=== PATIENT | female | born 1985 | race Caucasian/White ===

== ENCOUNTER 2021-01-19 20:29 | Emergency (ER) | payer OTHER ==
[2021-01-19] MEDS ORDERED: Amoxicillin/Clavulanate K 875-125 MG Tab PO ONE (20:59)
[2021-01-19] MEDS ORDERED: Diphtheria,Pertussis(Acell),Tetanus Vaccine 0.5 ML Syringe IM ONE (20:59)
[2021-01-19] MEDS ORDERED: Lidocaine 1% 10 ML MDV INJECT ONE (20:59)
--- NOTE | 2021-01-19 21:01 | EDM.PDOC ---
ED HPI GENERAL MEDICAL PROBLEM - General Chief Complaint: Bite:Animal, Insect Stated Complaint: DOG BITE TO HAND Time Seen by Provider: 01/19/21 20:44 Source of Information: Reports: Patient, RN Notes Reviewed History Limitations: Reports: No Limitations - History of Present Illness INITIAL COMMENTS - FREE TEXT/NARRATIVE: Patient is a 35-year-old female presenting to the emergency department for evaluation of a dog bite on her right hand. She states that she was playing with her bulldog that she fosters when he bit her finger. The dog is up-to-date on its vaccinations. She states that she is due for a tetanus vaccination. - Related Data Allergies Allergy/AdvReac Type Severity Reaction Status Date / Time No Known Allergies Allergy Verified 01/19/21 20:42 Home Meds: Home Meds Amoxicillin/Potassium Clav [Augmentin 875-125 Tablet] 1 each PO BID 7 Days #13 tablet 01/19/21 [Rx] Lacosamide [Vimpat] 100 mg PO BID 01/19/21 [History] Sertraline [Zoloft] 100 mg PO DAILY 01/19/21 [History] Past Medical History HEENT History: Reports: Impaired Vision Psychiatric History: Reports: Anxiety - Past Surgical History HEENT Surgical History: Reports: LASIK Other HEENT Surgeries/Procedures: wisdom teeth removed Other Musculoskeletal Surgeries/Procedures:: right broken bone Social & Family History - Tobacco Use Tobacco Use Status *Q: Never Tobacco User Second Hand Smoke Exposure: No - Caffeine Use Caffeine Use: Reports: None - Alcohol Use Days Per Week of Alcohol Use: 5 Number of Drinks Per Day: 3 Total Drinks Per Week: 15 - Recreational Drug Use Recreational Drug Use: No ED ROS GENERAL - Review of Systems Review Of Systems: Comprehensive ROS is negative, except as noted in HPI. ED EXAM, ANIMAL BITE - Physical Exam Exam: See Below Exam Limited By: No Limitations General Appearance: Alert, WD/WN, No Apparent Distress Respiratory/Chest: No Respiratory Distress, Lungs Clear, Normal Breath Sounds, No Accessory Muscle Use, Chest Non-Tender Cardiovascular: Normal Peripheral Pulses, Regular Rate, Rhythm, No Edema, No Gallop, No JVD, No Murmur, No Rub Extremities: Other (1.5 cm laceration to the ventral aspect of the proximal phalynx of the left 4th finger. Scattered superficial abrasions to the finger. ) Neurological: Alert, Oriented, CN II-XII Intact, Normal Cognition, Normal Gait, Normal Reflexes, No Motor/Sensory Deficits Psychiatric: Normal Affect, Normal Mood Skin Exam: Warm/Dry, DRY, I, Normal Color, NR ED ANIMAL BITE PROCEDURES - Laceration/Wound Repair Left Ventral Digit - 4th (Ring) Lac/Wound Length In cm: 1.5 Appearance: Subcutaneous Anesthetic Type: Local Local Anesthesia - Lidocaine (Xylocaine): 1% Plain Local Anesthetic Volume: 1cc Skin Prep: Chlorhexidine (Hibiciens), Providone-Iodine (Betadine), Saline, Steri le Drape Exploration/Debridement/Repair: Wound Explored, No Foreign Material Found Closed With: Sutures Suture Size: 4-0 # of Sutures: 3 (Loose) Suture Type: Nylon Sterile Dressing Applied: Nurse Tetanus Status Addressed: Yes Complications: No Course - Vital Signs Last Recorded V/S: Last Vital Signs Temp 97.2 F 01/19/21 20:37 Pulse 101 H 01/19/21 20:37 Resp 12 01/19/21 20:37 BP 150/103 H 01/19/21 20:37 Pulse Ox 95 01/19/21 20:37 - Orders/Labs/Meds Meds: Medications Discontinued Medications Generic Name Dose Route Start Last Admin Trade Name Freq PRN Reason Stop Dose Admin Amoxicillin/Clavulanate Potassium 1 tab 01/19/21 20:59 01/19/21 21:13 Amoxicillin/Clavulanate K 875-125 Mg Tab PO 01/19/21 21:00 1 tab ONETIME ONE Administration Diphtheria/Tetanus/Acell Pertussis 0.5 ml 01/19/21 20:59 01/19/21 21:13 Diphtheria,Pertussis(Acell),Tetanus Vaccine 0.5 Ml Syringe IM 01/19/21 21:00 0.5 ml .ONCE ONE Administration Lidocaine HCl 10 ml 01/19/21 20:59 01/19/21 21:13 Lidocaine 1% 10 Ml Mdv INJECT 01/19/21 21:00 10 ml ONETIME ONE Administration - Re-Assessments/Exams Free Text/Narrative Re-Assessment/Exam: Patient is a 35-year-old female presenting to the emergency department for evaluation after having her foster dog bite her left fourth finger. She states that he is up-to-date on his vaccinations, however she does need a tetanus vaccination. On exam, she has a number of superficial bite rodriguez on the finger as well as a single 1.5 cm deep laceration to the volar aspect of the proximal phalanx. This will require sutures for closure. See procedure notes for closure. She will be started on Augmentin for infection prophylaxis and receive her Boostrix vaccination today. Discharge instructions as documented. Departure - Departure Time of Disposition: 21:48 Disposition: Home, Self-Care 01 Condition: Good Clinical Impression: Dog bite Qualifiers: Encounter type: initial encounter Qualified Code(s): W54.0XXA - Bitten by dog, initial encounter - Discharge Information *PRESCRIPTION DRUG MONITORING PROGRAM REVIEWED*: No *COPY OF PRESCRIPTION DRUG MONITORING REPORT IN PATIENT RAMIRO: No Prescriptions: Amoxicillin/Potassium Clav [Augmentin 875-125 Tablet] 1 each PO BID 7 Days #13 tablet Instructions: Animal Bite, Adult, [id number] Referrals: Antonio Self Jr, MD [Primary Care Provider] - Forms: ED Department Discharge Additional Instructions: You were seen in the emergency department today for a laceration to your left ring finger after being bit by a dog as well as other superficial bite wounds. The wounds were cleansed and closed with 3 sutures. These should stay intact for 7-10 days. After that time they may be removed in the clinic by a nurse. Keep the wound clean and dry. Wash with normal soap and water twice daily. Do not submerge the wound in water. Your tetanus vaccination was updated today so this is current for 10 years. You have been started on Augmentin for infection prevention. Take this medication as prescribed. Your first dose was given in ER this evening. Watch for signs of infection including increased redness, swelling, or purulent drainage. If these should occur, you should be seen either in the clinic or in the emergency department as antibiotic treatment may be needed. Return to the ER as needed. Sepsis Event Note (ED) - Evaluation Sepsis Screening Result: No Definite Risk
== END 2021-01-19 21:54 | disposition home or self-care (01) ==
LOC: JD.ED 20:29
DX: S61.255A Open bite of left ring finger without damage to nail, initial encounter (principal); Z79.899 Other long term (current) drug therapy; Z23 Encounter for immunization; W54.0XXA Bitten by dog, initial encounter
CPT/HCPCS: 12001; 90471; 90715; 99283; A9270

== ENCOUNTER 2021-01-21 11:33 | Emergency (ER) | payer OTHER ==
[2021-01-21] MEDS ORDERED: Piperacillin/Tazobactam 4.5 GM in Sodium Chloride 0.9% 100 ML IV ONE (11:41)
--- NOTE | 2021-01-21 12:03 | EDM.PDOC ---
ED HPI GENERAL MEDICAL PROBLEM - General Chief Complaint: Bite:Animal, Insect Stated Complaint: DOG BIT TO LEFT HAND/SWOLLEN Time Seen by Provider: 01/21/21 11:36 Source of Information: Reports: Patient, Provider, RN Notes Reviewed History Limitations: Reports: No Limitations - History of Present Illness INITIAL COMMENTS - FREE TEXT/NARRATIVE: Patient is a 35-year-old female presenting to the emergency department from [facility] for evaluation with regards to pain and swelling to her left fourth finger. She was seen in this emergency department 2 days ago after sustaining a dog bite to that finger. Wound was cleansed and closed with 3 sutures. She was started on Augmentin for infection prophylaxis. She states that the wound has been getting progressively more painful and swollen. She denies any fever or chills. She did have one episode of vomiting yesterday, however states that she took her Augmentin without food prior to that. Treatments [employer]: Reports: NSAIDS Left Hand Pain Score (Numeric/FACES): 10 - Related Data Allergies Allergy/AdvReac Type Severity Reaction Status Date / Time No Known Allergies Allergy Verified 01/21/21 11:41 Home Meds: Home Meds Amoxicillin/Potassium Clav [Augmentin 875-125 Tablet] 1 each PO BID 7 Days #13 tablet 01/19/21 [Rx] Lacosamide [Vimpat] 100 mg PO BID 01/19/21 [History] Sertraline [Zoloft] 100 mg PO DAILY 01/19/21 [History] Past Medical History HEENT History: Reports: Impaired Vision Psychiatric History: Reports: Anxiety - Past Surgical History HEENT Surgical History: Reports: LASIK Other HEENT Surgeries/Procedures: wisdom teeth removed Other Musculoskeletal Surgeries/Procedures:: right broken bone Social & Family History - Tobacco Use Tobacco Use Status *Q: Never Tobacco User - Caffeine Use Caffeine Use: Reports: None ED ROS GENERAL - Review of Systems Review Of Systems: Comprehensive ROS is negative, except as noted in HPI. ED EXAM, ANIMAL BITE - Physical Exam Exam: See Below Exam Limited By: No Limitations General Appearance: Alert, WD/WN, No Apparent Distress Respiratory/Chest: No Respiratory Distress, Lungs Clear, Normal Breath Sounds, No Accessory Muscle Use, Chest Non-Tender Cardiovascular: Normal Peripheral Pulses, Regular Rate, Rhythm, No Edema, No Gallop, No JVD, No Murmur, No Rub Extremities: Other (Moderate edema to the left fourth finger. 1.5 cm sutured laceration to the volar aspect of the proximal phalanx. No drainage, however there does appear to be purulence below the surface. Redness and edema extends approximately chcf up the surface of the hand.) Neurological: Alert, Oriented, CN II-XII Intact, Normal Cognition, Normal Gait, Normal Reflexes, No Motor/Sensory Deficits Psychiatric: Normal Affect, Normal Mood Course - Vital Signs Last Recorded V/S: Last Vital Signs Temp 98.0 F 01/21/21 11:39 Pulse 84 01/21/21 11:39 Resp 18 01/21/21 11:39 BP 134/88 01/21/21 11:39 Pulse Ox 98 01/21/21 11:39 - Orders/Labs/Meds Labs: Laboratory Tests 01/21/21 01/21/21 01/21/21 Range/Units 11:42 11:42 11:53 WBC 7.43 (3.98-10.04) K/mm3 RBC 4.63 (3.98-5.22) M/mm3 Hgb 14.5 (11.2-15.7) gm/dl Hct 45.5 H (34.1-44.9) % MCV 98.3 H (79.4-94.8) fl MCH 31.3 (25.6-32.2) pg MCHC 31.9 L (32.2-35.5) g/dl RDW Std Deviation 54.3 H (36.4-46.3) fL Plt Count 148 L (182-369) K/mm3 MPV 9.8 (9.4-12.3) fl Neut % (Auto) 79.0 H (34.0-71.1) % Lymph % (Auto) 12.8 L (19.3-51.7) % Gage % (Auto) 6.9 (4.7-12.5) % Eos % (Auto) 0.9 (0.7-5.8) Baso % (Auto) 0.1 (0.1-1.2) % Neut # (Auto) 5.87 (1.56-6.13) K/mm3 Lymph # (Auto) 0.95 L (1.18-3.74) K/mm3 Gage # (Auto) 0.51 H (0.24-0.36) K/mm3 Eos # (Auto) 0.07 (0.04-0.36) K/mm3 Baso # (Auto) 0.01 (0.01-0.08) K/mm3 Sodium 142 (136-145) mEq/L Potassium 3.9 (3.5-5.1) mEq/L Chloride 103 (98-107) mEq/L Carbon Dioxide 30 (21-32) mEq/L Anion Gap 12.9 (5-15) BUN 7 (7-18) mg/dL Creatinine 0.7 (0.55-1.02) mg/dL Est Cr Clr Drug Dosing TNP Estimated GFR (MDRD) > 60 (>60) mL/min BUN/Creatinine Ratio 10.0 L (14-18) Glucose 108 H (74-106) mg/dL Calcium 9.1 (8.5-10.1) mg/dL Total Bilirubin 1.0 (0.2-1.0) mg/dL AST 63 H (15-37) U/L ALT 46 (14-59) U/L Alkaline Phosphatase 120 H (46-116) U/L C-Reactive Protein 10.9 H* (<1.0) mg/dL Total Protein 7.6 (6.4-8.2) g/dl Albumin 3.3 L (3.4-5.0) g/dl Globulin 4.3 gm/dL Albumin/Globulin Ratio 0.8 L (1-2) SARS-CoV-2 RNA (MELANIE) Negative (NEGATIVE) Meds: Medications Discontinued Medications Generic Name Dose Route Start Last Admin Trade Name Freq PRN Reason Stop Dose Admin Piperacillin Sod/Tazobactam 100 mls @ 200 mls/hr 01/21/21 11:41 01/21/21 11:50 Sod 4.5 gm/ Sodium Chloride IV 01/21/21 12:10 200 mls/hr ONETIME ONE Administration - Re-Assessments/Exams Free Text/Narrative Re-Assessment/Exam: Patient is a 35-year-old female presenting to the emergency department from the [facility] for evaluation with regards to pain and swelling to her left fourth finger after sustaining a dog bite on Friday. I did see her in the ER that evening. She had a 1.5 cm gaping wound to the proximal aspect of this finger. Wound was soaked in Betadine and irrigated well. It was gaping with adipose tissue protruding, therefore, closure was necessary. It was closed with three loose sutures. She was started on Augmentin for infection prophylaxis and given her tetanus vaccination. She states that the finger has been getting progressively more swollen and painful. She has been taking her Augmentin as prescribed. On exam, there is significant swelling to the finger as well as what appears to be purulence below the surface of the laceration. I ordered IV Zosyn to be given now as well as blood work including CBC, CMP, CRP, and Covid screen. Case was discussed with orthopedist, Dr. Law. Unfortunately he does not work with flexor tendons, therefore he recommended I call the hand specialist in [place]. Spoke with Dr. Travis, the hand specialist on-call at [facility]. He has accepted the patient for transfer with a direct admission. She should remain n.p.o. We will lower her to finish her dose of antibiotics and then proceed to [place] via private vehicle. We will fax the lab results and Covid results down to the facility once they are complete. Patient is in agreement with this plan. Departure - Departure Time of Disposition: 12:02 Disposition: DC/Tfer to Acute Hospital 02 Condition: Good Clinical Impression: Infected dog bite of finger Qualifiers: Encounter type: initial encounter Qualified Code(s): S61.259A - Open bite of unspecified finger without damage to nail, initial encounter - Discharge Information *PRESCRIPTION DRUG MONITORING PROGRAM REVIEWED*: No *COPY OF PRESCRIPTION DRUG MONITORING REPORT IN PATIENT RAMIRO: No Instructions: Animal Bite, Adult, [id number] Referrals: PCP,None [Primary Care Provider] - Forms: ED Department Discharge Additional Instructions: You were seen in the emergency department this today for evaluation of worsening pain and swelling to your left fourth finger after being bit by a dog on Friday. Exam does indicate that there is likely infection in this finger. While in the ER, you received a first dose of IV antibiotics. Arrangements have been made for you to be admitted to [facility] in [place] under the care of orthopedist, Dr. Travis. He will see you once you arrive to this facility. You should have nothing to eat or drink while enroute in anticipation of possibly needing to go to surgery today. Recommend that after leaving here you proceed directly to [place]. You may check in at the admitting desk in the ER. Sepsis Event Note (ED) - Evaluation Sepsis Screening Result: No Definite Risk - Focused Exam Vital Signs: Vital Signs Temp Pulse Resp BP Pulse Ox 01/21/21 11:39 98.0 F 84 18 134/88 98
== END 2021-01-21 12:25 ==
LOC: JD.ED 11:33
DX: S61.255A Open bite of left ring finger without damage to nail, initial encounter (principal); L08.9 Local infection of the skin and subcutaneous tissue, unspecified; Z79.899 Other long term (current) drug therapy; Z20.822 Contact with and (suspected) exposure to COVID-19; W54.0XXA Bitten by dog, initial encounter
CPT/HCPCS: 12001; 36415; 80053; 85025; 86140; 87635; 96365; 99283; J2543; 99284; U0002

== ENCOUNTER 2021-10-07 10:42 | Emergency (ER) | payer OTHER ==
[2021-10-07] MEDS ORDERED: Sodium Chloride 0.9% 1,000 ML IV ONE (12:27)
[2021-10-07] MEDS ORDERED: Ondansetron 4 MG/2 ML SDV IVPUSH ONE (12:27)
--- NOTE | 2021-10-07 12:27 | EDM.PDOC ---
ED HPI GENERAL MEDICAL PROBLEM - General Chief Complaint: Abdominal Pain Stated Complaint: VOMITING Time Seen by Provider: 10/07/21 11:04 Source of Information: Reports: Patient History Limitations: Reports: No Limitations - History of Present Illness INITIAL COMMENTS - FREE TEXT/NARRATIVE: 36-year-old female presents the emergency department today with complaints of vomiting that occurs every 8 days. She states that his has been an ongoing issue for the past 1 year. She notifies me that approximately every 8 days she vomits throughout the day. She woke at about midnight last evening has been vomiting throughout the night. Until this morning and has been unable to keep any food or fluids down. She states that the emesis is clear. She denies any black tarry stools. She denies any recent fever, chills, or diarrhea. She denies any abdominal pain associated with the vomiting. She states she does have issues with constipation. She states she did see a primary care provider regarding this issue and did have stool studies completed however has not followed up with her primary care provider for the results. She states she has never seen a missile facilities repairer. She has never had an EGD or colonoscopy. She admits that she has a very poor diet and does not consume much water or vegetables and eats a lot of processed foods. She also admits to drinking heavily. She states she has 3-5 drinks nightly and on the weekends gets severely intoxicated. She states she was told at her last primary care visit that her liver enzymes are elevated. - Related Data Allergies Allergy/AdvReac Type Severity Reaction Status Date / Time No Known Allergies Allergy Verified 10/07/21 11:01 Home Meds: Home Meds Lacosamide [Vimpat] 100 mg PO BID 01/19/21 [History] Sertraline [Zoloft] 100 mg PO DAILY 01/19/21 [History] Past Medical History HEENT History: Reports: Impaired Vision Psychiatric History: Reports: Anxiety - Infectious Disease History Infectious Disease History: Reports: Novel Coronavirus - Past Surgical History HEENT Surgical History: Reports: LASIK Other HEENT Surgeries/Procedures: wisdom teeth removed Other Musculoskeletal Surgeries/Procedures:: right broken bone Social & Family History - Tobacco Use Tobacco Use Status *Q: Never Tobacco User - Caffeine Use Caffeine Use: Reports: None ED ROS GENERAL - Review of Systems Review Of Systems: Comprehensive ROS is negative, except as noted in HPI. ED EXAM, GI/ABD - Physical Exam Exam: See Below General Appearance: Alert, WD/WN, No Apparent Distress Eyes: Bilateral: Normal Appearance Ears: Normal External Exam, Hearing Grossly Normal Nose: Normal Inspection Throat/Mouth: Normal Inspection, Normal Lips, Normal Voice, No Airway Compromise Head: Atraumatic Neck: Normal Inspection, Supple Respiratory/Chest: No Respiratory Distress, Lungs Clear, Normal Breath Sounds, No Accessory Muscle Use, Chest Non-Tender Cardiovascular: Normal Peripheral Pulses, Regular Rate, Rhythm, No Edema, No Murmur GI/Abdominal Exam: Normal Bowel Sounds, Soft, Non-Tender, No Distention (Female) Exam: Deferred Rectal (Female) Exam: Deferred Back Exam: Normal Inspection, Full Range of Motion Extremities: Normal Inspection, Normal Range of Motion, Non-Tender, No Pedal Edema, Normal Capillary Refill Neurological: Alert, Oriented, Normal Cognition Psychiatric: Normal Affect, Normal Mood Skin Exam: Warm, Dry, Intact, Normal Color, No Rash Lymphatic: No Adenopathy Course - Vital Signs Text/Narrative:: Stated above, patient presents with approximate 1 year history of vomiting that occurs approximately every days. States that this occurred last night starting at approximately midnight and happen throughout the night. Physical exam reveals a very unkept female. She does appear much older than her stated age. Exam is essentially unremarkable. Abdomen is soft and bowel tones are positive in all 4 quadrants. Heart rate is regular and lung sounds are clear. Will obtain lab studies to include a CBC, CMP, C-reactive protein and magnesium level. Also get a flat and upright of the abdomen. Obtain a urinalysis with micro and culture if indicated. We will also medicate the patient with a liter of normal saline as she is likely dehydrated and Zofran 4 mg IV. Last Recorded V/S: Last Vital Signs Temp 97.4 F 10/07/21 10:58 Pulse 99 10/07/21 10:58 Resp 18 10/07/21 10:58 BP 147/103 H 10/07/21 10:58 Pulse Ox 97 10/07/21 10:58 - Orders/Labs/Meds Orders: Active Orders 24 hr Category Date Time Status Abdomen 2V AP Flat Upright [CR] Stat Exams 10/07/21 11:06 Taken Labs: Laboratory Tests 01/02/22 01/02/22 01/02/22 Range/Units 12:14 12:14 14:15 WBC 5.00 (3.98-10.04) K/mm3 RBC 4.50 (3.98-5.22) M/mm3 Hgb 14.3 (11.2-15.7) gm/dl Hct 45.1 H (34.1-44.9) % MCV 100.2 H D (79.4-94.8) fl MCH 31.8 (25.6-32.2) pg MCHC 31.7 L (32.2-35.5) g/dl RDW Std Deviation 60.7 H (36.4-46.3) fL Plt Count 167 L (182-369) K/mm3 MPV 10.3 (9.4-12.3) fl Neut % (Auto) 79.0 H (34.0-71.1) % Lymph % (Auto) 13.0 L (19.3-51.7) % [place] % (Auto) 7.2 (4.7-12.5) % Eos % (Auto) 0.2 L (0.7-5.8) Baso % (Auto) 0.6 (0.1-1.2) % Neut # (Auto) 3.95 (1.56-6.13) K/mm3 Lymph # (Auto) 0.65 L (1.18-3.74) K/mm3 [place] # (Auto) 0.36 (0.24-0.36) K/mm3 Eos # (Auto) 0.01 L (0.04-0.36) K/mm3 Baso # (Auto) 0.03 (0.01-0.08) K/mm3 Sodium 141 (136-145) mEq/L Potassium 4.2 (3.5-5.1) mEq/L Chloride 102 (98-107) mEq/L Carbon Dioxide 31 (21-32) mEq/L Anion Gap 12.2 (5-15) BUN 6 L (7-18) mg/dL Creatinine 0.6 (0.55-1.02) mg/dL Est Cr Clr Drug Dosing 109.78 mL/min Estimated GFR (MDRD) > 60 (>60) mL/min BUN/Creatinine Ratio 10.0 L (14-18) Glucose 118 H (70-99) mg/dL Calcium 8.7 (8.5-10.1) mg/dL Magnesium 1.0 L (1.8-2.4) mg/dL Total Bilirubin 1.4 H (0.2-1.0) mg/dL AST 249 H (15-37) U/L ALT 108 H (14-59) U/L Alkaline Phosphatase 217 H (46-116) U/L C-Reactive Protein 0.4 (<1.0) mg/dL Total Protein 7.8 (6.4-8.2) g/dl Albumin 3.6 (3.4-5.0) g/dl Globulin 4.2 gm/dL Albumin/Globulin Ratio 0.9 L (1-2) Urine Color Yellow (Yellow) Urine Appearance Clear (Clear) Urine pH 7.0 (5.0-8.0) Ur Specific [place] 1.025 (1.005-1.030) Urine Protein 2+ H (Negative) Urine Glucose (UA) Negative (Negative) Urine Ketones Negative (Negative) Urine Occult Blood Negative (Negative) Urine Nitrite Negative (Negative) Urine Bilirubin Negative (Negative) Urine Urobilinogen 1.0 (0.2-1.0) Ur Leukocyte Esterase Negative (Negative) U Hyaline Cast (Auto) 5-10 H (0-5) /lpf Urine RBC 0-5 (0-5) /hpf Urine WBC Not seen (0-5) /hpf Ur Squamous Epith Cells 0-5 (0-5) /hpf Urine Bacteria Rare (FEW) /hpf Urine Mucus Few (FEW) /hpf Meds: Medications Discontinued Medications Generic Name Dose Route Start Last Admin Trade Name Lina PRN Reason Stop Dose Admin Sodium Chloride 1,000 mls @ 999 mls/hr 10/07/21 12:27 10/07/21 12:49 Normal Saline IV 10/07/21 13:27 999 mls/hr ONETIME ONE Administration Magnesium Sulfate 4 gm/ Premix 50 mls @ 12.5 mls/hr 10/07/21 13:29 10/07/21 13:51 IV 10/07/21 17:28 12.5 mls/hr ONETIME ONE Administration Magnesium Oxide 800 mg 10/07/21 13:30 10/07/21 13:51 Magnesium Oxide 400 Mg Tab PO 10/07/21 13:31 800 mg ONETIME ONE Administration Ondansetron HCl 4 mg 10/07/21 12:27 10/07/21 12:49 Ondansetron 4 Mg/2 Ml Sdv IVPUSH 10/07/21 12:28 4 mg ONETIME ONE Administration - Re-Assessments/Exams Free Text/Narrative Re-Assessment/Exam: 10/07/21 12:49 vRad radiologist impression flat and upright of the abdomen: No acute findings. 10/07/21 14:02 Hematology reveals a WBC of 5.0, hemoglobin 14.3, hematocrit 45.1, platelet count 167 Chemistry reveals a sodium of 141, potassium 4.2, anion gap 12.2, BUN 6, creatinine 0.6, GFR greater than 60, glucose 118, magnesium 1.0, total bilirubin 1.4, AST 249, ALT 118, alk phos 217, C-reactive protein 0.4 I ordered for the patient received 4 g of magnesium IV as well as magnesium oxide 800 mg p.o. x1 dose. I discussed at length the patient's lab results. Patient likely having bouts of nausea and vomiting due to her elevated liver enzymes and portal hypertension. Discussed the severity of her elevated liver enzymes as well as her hypomagnesemia results. Notify the patient that at this time it would be in her best interest to stop drinking alcohol. Patient states she does verbalize understanding. 10/07/21 18:15 And has completed her magnesium infusion. I will allow her to go home. Again discussed at length the need to stop drinking. Patient is very motivated to quit drinking. States she has reached out to a friend has been sober for a year. She also states she will look into going to alcoholics anonymous meetings. She has been instructed to return to the emergency department with any worsening symptoms or problems. Also instructed to follow-up with her primary care provider in about a week for reevaluation. Departure - Departure Time of Disposition: 18:16 Disposition: Home, Self-Care 01 Condition: Good Clinical Impression: Elevated liver enzymes, Hypomagnesemia, Alcohol abuse - Discharge Information Instructions: Alcohol Abuse and Dependence Information, Adult, Finding Treatment for Addiction Referrals: Antonio Self Jr, MD [Primary Care Provider] - Erika Gee NP [Nurse Practitioner] - Forms: ED Department Discharge Additional Instructions: You were seen in the emergency department today with complaints of that occurs approximately ever 8 days and decreased appetite. He did admit to significant use of alcohol daily and on the weekends. Lab studies were completed which showed your magnesium level was extremely low and liver enzymes were extremely elevated. As discussed, the cause of your vomiting and decreased appetite likely due to injury to your liver causing you to feel fullness and then subsequently vomiting. Magnesium level likely depleted due to excessive alcohol intake. Elevated blood pressure likely due to liver injury. Recommend you stop drinking alcohol immediately. Find a support group or a good support system to assist with your recovery. Eat a well-balanced diet with magnesium rich fluids and drink plenty of water. Recommend follow-up with your primary care provider in about 1 week for reevaluation. Should your condition worsen or change, do not hesitate returning the emergency department. Sepsis Event Note (ED) - Evaluation Sepsis Screening Result: No Definite Risk - Focused Exam Vital Signs: Vital Signs Temp Pulse Resp BP Pulse Ox 10/07/21 10:58 97.4 F 99 18 147/103 H 97 - My Orders Last 24 Hours: My Active Orders 10/07/21 11:06 Abdomen 2V AP Flat Upright [CR] Stat - Assessment/Plan Last 24 Hours: My Active Orders 10/07/21 11:06 Abdomen 2V AP Flat Upright [CR] Stat
[2021-10-07] MEDS ORDERED: Magnesium Sulfate/Water 4 GM in Premix Bag 1 BAG IV ONE (13:29)
[2021-10-07] MEDS ORDERED: Magnesium Oxide 400 MG Tab PO ONE (13:30)
--- NOTE | 2021-10-08 14:31 | CR ---
EXAM: XR ABDOMEN 2 VIEWS COMPLETE LOCATION: [facility] [place] DATE/TIME: 10/07/2021 11:20 AM INDICATION: Abdominal pain; acute COMPARISON: None. IMPRESSION: Negative abdomen. Bowel gas pattern is normal. Nothing for obstruction or free air. No evidence for renal stones. IUD is in place. SIGNED BY: Go Warren MD 10/08/2021 12:51 PM [facility]
== END 2021-10-07 18:35 | disposition home or self-care (01) ==
LOC: JD.ED 10:42
DX: E83.42 Hypomagnesemia (principal); F10.10 Alcohol abuse, uncomplicated; R74.8 Abnormal levels of other serum enzymes; Z79.899 Other long term (current) drug therapy
CPT/HCPCS: 36415; 74019; 80053; 81001; 83735; 85025; 86140; 96361; 96365; 96366; 96375; 99284; A9270; J2405; J3475; J7030

== ENCOUNTER 2022-08-14 13:05 | Inpatient (IN) | payer OTHER ==
[2022-08-14] MEDS ORDERED: Sodium Chloride 0.9% 10 ML Syringe FLUSH PRN (13:48)
[2022-08-14] MEDS ORDERED: Lidocaine 1%/Sod Bicarbonate in NS 8.4% 1 ML Syringe IDERM PRN (13:48)
[2022-08-14] MEDS ORDERED: Lactated Ringers 1,000 ML IV SCH ×2 (14:00→18:15)
[2022-08-14] MEDS ORDERED: Bupivacaine 0.5% 30 ML SDV ONE (14:22)
[2022-08-14] MEDS ORDERED: Lidocaine 1% with EPINEPHrine 1:100,000 10 ML MDV ONE (14:22)
[2022-08-14] MEDS ORDERED: fentaNYL 100 MCG/2 ML SDV ONE (15:16)
[2022-08-14] MEDS ORDERED: Midazolam 1 MG/ML 2 ML SDV ONE ×2 (15:16→15:41)
[2022-08-14] MEDS ORDERED: Propofol 200 MG/20 ML SDV ONE (15:17)
[2022-08-14] MEDS ORDERED: Lidocaine 1% 4 ML ONE (15:19)
[2022-08-14] MEDS ORDERED: Lidocaine 1% 2 ML ONE (15:21)
[2022-08-14] MEDS ORDERED: ceFAZolin 2 GM Vial ONE (15:49)
[2022-08-14] MEDS ORDERED: Ketamine 500 mg/10 ML MDV ONE (15:56)
[2022-08-14] MEDS ORDERED: Ondansetron 4 MG/2 ML SDV ONE (16:01)
[2022-08-14] MEDS ORDERED: Ondansetron 4 MG/2 ML SDV IV PRN (16:20)
[2022-08-14] MEDS ORDERED: Acetaminophen 325 MG Tab PO PRN ×2 (16:20→18:09)
[2022-08-14] MEDS ORDERED: oxyCODONE 5 MG Tab PO PRN (16:24)
[2022-08-14] MEDS ORDERED: diphenhydrAMINE 50 MG Cap PO PRN (16:26)
[2022-08-14] MEDS ORDERED: Lactated Ringers 1,000 ML ONE (17:24)
[2022-08-14] MEDS ORDERED: Cefepime 2 GM in Sodium Chloride 0.9% 50 ML IV SCH (18:00)
[2022-08-14] MEDS ORDERED: Ketorolac 15 MG/ML SDV IVPUSH SCH (18:00)
[2022-08-14] MEDS ORDERED: VANCOmycin 1.25 GM/250 ML 1.25 GM in Premix Bag 1 BAG IV SCH ×2 (19:00→21:00)
[2022-08-14] MEDS ORDERED: HYDROmorphone 0.5 MG/0.5 ML Syringe ONE (19:20)
[2022-08-14] MEDS: HYDROmorphone 0.5 MG/0.5 ML Syringe IVPUSH PRN (19:22)
[2022-08-14] MEDS ORDERED: Sodium Chloride 0.9% 10 ML Syringe FLUSH SCH (21:00)
[2022-08-14] MEDS ORDERED: Ketorolac 30 MG/ML SDV ONE (21:34)
[2022-08-14] MEDS: Ketorolac 15 MG/ML SDV IVPUSH SCH (21:39)
[2022-08-14] MEDS: Cefepime 2 GM in Sodium Chloride 0.9% 50 ML IV SCH (22:02)
[2022-08-14] MEDS ORDERED: diphenhydrAMINE 50 MG/ML SDV ONE (23:48)
[2022-08-15] MEDS ORDERED: HYDROmorphone 0.5 MG/0.5 ML Syringe ONE (00:35)
[2022-08-15] MEDS: HYDROmorphone 0.5 MG/0.5 ML Syringe IVPUSH PRN (00:37)
[2022-08-15] MEDS ORDERED: Ketorolac 30 MG/ML SDV ONE (03:30)
[2022-08-15] MEDS: Ketorolac 15 MG/ML SDV IVPUSH SCH ×4 (04:12→22:10)
[2022-08-15] MEDS: Cefepime 2 GM in Sodium Chloride 0.9% 50 ML IV SCH ×3 (04:19→19:49)
[2022-08-15] MEDS ORDERED: Acetaminophen 325 MG Tab PO PRN (08:28)
[2022-08-15] MEDS ORDERED: diphenhydrAMINE 50 MG Cap PO PRN (08:32)
[2022-08-15] MEDS ORDERED: HYDROmorphone 0.5 MG/0.5 ML Syringe IVPUSH PRN ×2 (08:33→10:35)
[2022-08-15] MEDS ORDERED: Ondansetron 4 MG/2 ML SDV IV PRN (08:34)
[2022-08-15] MEDS ORDERED: Lactated Ringers 1,000 ML IV SCH (08:45)
[2022-08-15] MEDS ORDERED: HYDROmorphone 0.5 MG/0.5 ML Syringe IVPUSH ONE (09:30)
[2022-08-15] MEDS: VANCOmycin 1.25 GM/250 ML 1.25 GM in Premix Bag 1 BAG IV SCH ×2 (10:38→22:10)
[2022-08-15] MEDS: oxyCODONE 5 MG Tab PO PRN (20:59)
[2022-08-16] MEDS: Ketorolac 15 MG/ML SDV IVPUSH SCH ×2 (03:59→09:38)
[2022-08-16] MEDS: Cefepime 2 GM in Sodium Chloride 0.9% 50 ML IV SCH ×2 (04:00→11:48)
[2022-08-16] MEDS ORDERED: Magnesium Sulfate/Water 2 GM in Premix Bag 1 BAG IV ONE (09:30)
[2022-08-16] MEDS: VANCOmycin 1.25 GM/250 ML 1.25 GM in Premix Bag 1 BAG IV SCH (09:45)
[2022-08-16] MEDS: oxyCODONE 5 MG Tab PO PRN (09:46)
== END 2022-08-16 13:33 | disposition home or self-care (01) | DRG 585 ==
LOC: JD.SDS 13:05 → JD.MS 13:05 → EDSTATUS 14:15 → JD.MS 16:19 → JD.OB 16:20 → JD.SDS 16:20
PROVIDERS: ADMIT Surgery; ATTEND Surgery
PROC: 0H9U0ZZ Drainage of Left Breast, Open Approach (ICD-10-PCS; principal; 2022-08-14)
PROC: 0HBU0ZX Excision of Left Breast, Open Approach, Diagnostic (ICD-10-PCS; 2022-08-14)
DX: N61.1 Abscess of the breast and nipple (principal); E83.42 Hypomagnesemia; N61.0 Mastitis without abscess; E03.9 Hypothyroidism, unspecified; R74.8 Abnormal levels of other serum enzymes; I73.00 Raynaud's syndrome without gangrene; M32.9 Systemic lupus erythematosus, unspecified; F41.9 Anxiety disorder, unspecified; H54.7 Unspecified visual loss; Z79.899 Other long term (current) drug therapy; Z98.890 Other specified postprocedural states; Z86.16 Personal history of COVID-19
CPT/HCPCS: 00400; 36415; 80048; 80053; 81025; 83735; 85025; 87070; 87075; 87205; A9270-GY; J0690; J0692; J1170; J1885; J2250; J2405; J2704; J3010; J3370; J3475; J3490; J7120; Q0163

== ENCOUNTER 2025-05-12 17:57 | Inpatient (IN) | payer BC, OTHER ==
[2025-05-12 18:33] LABS: BASOPHILS ABSOLUTE AUTO 0.1 K/mm3 (0.0-0.2); BASOPHILS PERCENT AUTO 0.8 % (0.0-1.0); EOSINOPHILS ABSOLUTE AUTO 0.1 K/mm3 (0.0-0.4); EOSINOPHILS PERCENT AUTO 0.8 % (0.0-6.0); IMMATURE GRAN ABSOLUTE AUTO 0.02 K/mm3 (0.00-0.05); IMMATURE GRAN PERCENT AUTO 0.2 % (0.0-0.4); LYMPHOCYTES ABSOLUTE AUTO 2.0 K/mm3 (1.0-4.8); LYMPHOCYTES PERCENT AUTO 21.6 % (24.0-44.0); MEAN PLATELET VOLUME 10.5 fl (9.4-12.3); MONOCYTES ABSOLUTE AUTO 0.8 K/mm3 (0.0-0.8); MONOCYTES PERCENT AUTO 8.7 % (0.0-8.0); NEUTROPHILS ABSOLUTE AUTO 6.2 K/mm3 (1.8-7.7); NEUTROPHILS PERCENT AUTO 67.9 % (41.0-71.0); NRBC ABSOLUTE 0.00 (0.00-0.02); NRBC PERCENT 0.0 % (0.0-0.2); PLATELET COUNT,PLT 112 K/mm3 (150-400); RED BLOOD CELL COUNT 3.65 M/mm3 (4.10-5.30); WHITE BLOOD CELL COUNT,WBC 9.13 K/mm3 (3.9-11.3)
[2025-05-12 19:22] LABS: A/G RATIO 0.6 (1-2); ALANINE AMINOTRANSFERASE,ALT 33.0 U/L (14-59); ASPARTATE AMNIOTRANSFERASE,AST 170.0 U/L (15-37); BILIRUBIN TOTAL 3.7 mg/dL (0.2-1.0); BLOOD UREA NITROGEN,BUN 1.0 mg/dL (7-18); CARBON DIOXIDE,CO2 26.0 mEq/L (21-32); CHLORIDE,CL 106.0 mEq/L (98-107); CREATININE 0.3 mg/dL (0.55-1.02); EST CRCL DRUG DOSING (CG) 213.1 mL/min; ESTIMATED GFR 137.0 mL/min (>60); ETHANOL BLOOD MEDICAL 0.3 gm% (0.00); GLUCOSE RANDOM 112.0 mg/dL (70-99); HCG QUANTITATIVE 2.0 mIU/mL; POTASSIUM,K 3.4 mEq/L (3.5-5.1); PROTEIN TOTAL,TP 7.3 g/dl (6.4-8.2); SODIUM,NA 145.0 mEq/L (136-145); TSH 1.85 uIU/mL (0.358-3.74)
[2025-05-12 19:31] LABS: BUPRENORPHINE SCREEN,URINE NEGATIVE (CUTOFF=10); METHADONE SCREEN, URINE NEGATIVE (CUTOFF=200); METHAMPHETAMINES SCREEN, URINE NEGATIVE (CUTOFF=500); OXYCODONE SCREEN,URINE NEGATIVE (CUT0FF=100); THC SCREEN,URINE 20 NG/ML NEGATIVE (CUTOFF=50)
[2025-05-12 19:32] LABS: AMPHETAMINES SCREEN, URINE NEGATIVE (CUTOFF=500)
[2025-05-12] MEDS: Lactated Ringers 1,000 ML IV ONE (20:15)
[2025-05-13] MEDS: Ondansetron 4 MG/2 ML SDV IVPUSH PRN (07:41)
[2025-05-13 08:41] LABS: BLOOD UREA NITROGEN,BUN 1.0 mg/dL (7-18); CARBON DIOXIDE,CO2 28.0 mEq/L (21-32); CHLORIDE,CL 105.0 mEq/L (98-107); EST CRCL DRUG DOSING (CG) 159.83 mL/min; ESTIMATED GFR 127.0 mL/min (>60); GLUCOSE RANDOM 101.0 mg/dL (70-99); POTASSIUM,K 3.8 mEq/L (3.5-5.1); SODIUM,NA 143.0 mEq/L (136-145)
[2025-05-13] MEDS ORDERED: Ondansetron 4 MG Tab.DIS PO PRN (08:45)
[2025-05-13] MEDS ORDERED: LORazepam 2 MG/ML SDV IVPUSH PRN ×2 (08:48→08:50)
[2025-05-13 08:59] LABS: PHOSPHORUS 3.7 mg/dL (2.6-4.7)
[2025-05-13 09:44] LABS: CREATININE 0.4 mg/dL (0.55-1.02)
[2025-05-13] MEDS: Magnesium Sulf/Wat 4 GM/50 mL 4 GM in Premix Bag 1 BAG IV ONE (10:02)
[2025-05-13] MEDS: NS + KCl 20mEq/L 1,000 ML IV SCH (11:29)
[2025-05-14 05:35] LABS: BASOPHILS ABSOLUTE AUTO 0.0 K/mm3 (0.0-0.2); BASOPHILS PERCENT AUTO 0.7 % (0.0-1.0); EOSINOPHILS ABSOLUTE AUTO 0.0 K/mm3 (0.0-0.4); EOSINOPHILS PERCENT AUTO 0.7 % (0.0-6.0); IMMATURE GRAN ABSOLUTE AUTO 0.01 K/mm3 (0.00-0.05); IMMATURE GRAN PERCENT AUTO 0.2 % (0.0-0.4); LYMPHOCYTES ABSOLUTE AUTO 1.1 K/mm3 (1.0-4.8); LYMPHOCYTES PERCENT AUTO 24.2 % (24.0-44.0); MEAN PLATELET VOLUME 10.9 fl (9.4-12.3); MONOCYTES ABSOLUTE AUTO 0.5 K/mm3 (0.0-0.8); MONOCYTES PERCENT AUTO 11.4 % (0.0-8.0); NEUTROPHILS ABSOLUTE AUTO 2.9 K/mm3 (1.8-7.7); NEUTROPHILS PERCENT AUTO 62.8 % (41.0-71.0); NRBC ABSOLUTE 0.00 (0.00-0.02); NRBC PERCENT 0.0 % (0.0-0.2); PLATELET COUNT,PLT 78 K/mm3 (150-400); RED BLOOD CELL COUNT 3.19 M/mm3 (4.10-5.30); WHITE BLOOD CELL COUNT,WBC 4.58 K/mm3 (3.9-11.3)
[2025-05-14 06:29] LABS: A/G RATIO 0.5 (1-2); ALANINE AMINOTRANSFERASE,ALT 24.0 U/L (14-59); ASPARTATE AMNIOTRANSFERASE,AST 134.0 U/L (15-37); BILIRUBIN TOTAL 5.3 mg/dL (0.2-1.0); BLOOD UREA NITROGEN,BUN 2.0 mg/dL (7-18); CARBON DIOXIDE,CO2 29.0 mEq/L (21-32); CHLORIDE,CL 103.0 mEq/L (98-107); EST CRCL DRUG DOSING (CG) 159.83 mL/min; ESTIMATED GFR 127.0 mL/min (>60); GLUCOSE RANDOM 90.0 mg/dL (70-99); POTASSIUM,K 4.2 mEq/L (3.5-5.1); SODIUM,NA 136.0 mEq/L (136-145)
[2025-05-14 06:35] LABS: CREATININE 0.4 mg/dL (0.55-1.02); PROTEIN TOTAL,TP 6.3 g/dl (6.4-8.2)
[2025-05-14] MEDS: Magnesium Sulfate 2 GM/50 mL 2 GM in Premix Bag 1 BAG IV ONE (08:15)
== END 2025-05-14 10:56 | disposition home or self-care (01) | DRG 775 ==
LOC: JD.ED 17:57 → JD.MS 21:09 → INTOOBSV 21:09 → OBSVTOIN 21:09 → JD.ICU 05-13 11:14
PROVIDERS: ADMIT Family Medicine; ATTEND Family Medicine
PROC: HZ2ZZZZ Detoxification Services for Substance Abuse Treatment (ICD-10-PCS; principal; 2025-05-13)
DX: F10.239 Alcohol dependence with withdrawal, unspecified (principal); H54.7 Unspecified visual loss; F41.9 Anxiety disorder, unspecified; E86.0 Dehydration; R56.9 Unspecified convulsions; K70.31 Alcoholic cirrhosis of liver with ascites; I73.00 Raynaud's syndrome without gangrene; E83.42 Hypomagnesemia; Z79.899 Other long term (current) drug therapy; Z86.16 Personal history of COVID-19; Z98.890 Other specified postprocedural states
CPT/HCPCS: 36415; 76705; 76705-26; 80048; 80053; 80143; 80179; 80306; 80307; 82140; 83735; 84100; 84443; 84702; 85025; 96361; 96374; 96376; 99284; 99285-25; A9270-GY; G0378; J1650; J2405; J3475; J3480; J7030; J7120

== ENCOUNTER 2025-08-15 10:37 | Emergency (ER) | payer BC ==
[2025-08-15] MEDS ORDERED: Sodium Chloride 0.9% Inhalation Soln 3 ML Neb INH PRN (11:09)
[2025-08-15] MEDS ORDERED: Sodium Chloride 0.9% 10 ML Syringe FLUSH PRN (11:11)
[2025-08-15 11:20] LABS: BASOPHILS ABSOLUTE AUTO 0.1 K/mm3 (0.0-0.2); BASOPHILS PERCENT AUTO 1.2 % (0.0-1.0); EOSINOPHILS ABSOLUTE AUTO 0.0 K/mm3 (0.0-0.4); EOSINOPHILS PERCENT AUTO 0.3 % (0.0-6.0); IMMATURE GRAN ABSOLUTE AUTO 0.03 K/mm3 (0.00-0.05); IMMATURE GRAN PERCENT AUTO 0.4 % (0.0-0.4); LYMPHOCYTES ABSOLUTE AUTO 1.3 K/mm3 (1.0-4.8); LYMPHOCYTES PERCENT AUTO 16.1 % (24.0-44.0); MEAN PLATELET VOLUME 10.5 fl (9.4-12.3); MONOCYTES ABSOLUTE AUTO 0.5 K/mm3 (0.0-0.8); MONOCYTES PERCENT AUTO 6.4 % (0.0-8.0); NEUTROPHILS ABSOLUTE AUTO 5.9 K/mm3 (1.8-7.7); NEUTROPHILS PERCENT AUTO 75.6 % (41.0-71.0); NRBC ABSOLUTE 0.00 (0.00-0.02); NRBC PERCENT 0.0 % (0.0-0.2); PLATELET COUNT,PLT 104 K/mm3 (150-400); RED BLOOD CELL COUNT 4.03 M/mm3 (4.10-5.30); WHITE BLOOD CELL COUNT,WBC 7.81 K/mm3 (3.9-11.3)
[2025-08-15] MEDS: methylPREDNISolone Sodium Succinate 125 MG/2 ML SDV IVPUSH ONE (11:32)
[2025-08-15 11:39] LABS: A/G RATIO 0.6 (1-2); ALANINE AMINOTRANSFERASE,ALT 34.0 U/L (14-59); ASPARTATE AMNIOTRANSFERASE,AST 180.0 U/L (15-37); BILIRUBIN TOTAL 4.6 mg/dL (0.2-1.0); BLOOD UREA NITROGEN,BUN 3.0 mg/dL (7-18); CARBON DIOXIDE,CO2 24.0 mEq/L (21-32); CHLORIDE,CL 103.0 mEq/L (98-107); EST CRCL DRUG DOSING (CG) 105.47 mL/min; ESTIMATED GFR 115.0 mL/min (>60); GLUCOSE RANDOM 118.0 mg/dL (70-99); POTASSIUM,K 3.7 mEq/L (3.5-5.1); SODIUM,NA 142.0 mEq/L (136-145)
[2025-08-15 11:53] LABS: CREATININE 0.6 mg/dL (0.55-1.02); PROTEIN TOTAL,TP 7.4 g/dl (6.4-8.2)
[2025-08-15 12:55] LABS: CORONAVIRUS COVID-19 NAA NEGATIVE (NEGATIVE); INFLUENZA A NAA NEGATIVE (NEGATIVE); RESPIRATORY SYNCYTIAL VIR NAA NEGATIVE (NEGATIVE)
[2025-08-15] MEDS: Albuterol 0.083% 2.5 MG/3 ML Neb Soln NEB ONE (13:27)
[2025-08-15] MEDS: Ondansetron 4 MG/2 ML SDV IVPUSH ONE (14:17)
== END 2025-08-15 14:25 | disposition home or self-care (01) ==
LOC: JD.ED 10:37
DX: J06.9 Acute upper respiratory infection, unspecified (principal); Z86.16 Personal history of COVID-19; Z79.899 Other long term (current) drug therapy
CPT/HCPCS: 36415; 71045; 80053; 85025; 86140; 87637; 87651; 93005; 94640; 96374; 96375; 99285; J2405; J2919; J3490; J7613; A9270-GY